=== PATIENT | male | born 1970 | race Two or more races ===

== ENCOUNTER 2022-05-08 03:17 | Emergency (ER) | payer SELFPAY ==
[~2022-05-08] VITALS: Ht 182.9 cm; Wt 104.3 kg
--- NOTE | 2022-05-08 03:36 | NUR ---
PRESENTED TO THE ER FOR C/O NON-RADIATING DOLL CP X 1 HOUR. NO SOB, FEVER, CHILLS, NAUSEA OR VOMITING. PT AMBULATORY TO ER BED 9, WAS PLACED ON A MONITOR. AWAITING FOR 'S EVER
--- NOTE | 2022-05-08 03:37 | NUR ---
RAC #18G S/L BLOOD COLLECTED AND SENT TO LAB
[2022-05-08] MEDS ORDERED: KETOROLAC TROMETHAMINE INJ 30 MG/ML VIAL ONE (03:45)
--- NOTE | 2022-05-08 03:49 | NUR ---
COVID ANTIGEN AND INFLUENZA SWAB COLLECTED AND SENT TO LAB
[2022-05-08] MEDS ORDERED: KETOROLAC TROMETHAMINE INJ 30 MG/ML VIAL IV ONE (04:00)
--- NOTE | 2022-05-08 04:15 | NUR ---
STEEL ROLLER AT PT'S BEDSIDE
[2022-05-08 04:44] LABS: BASOPHILS % (AUTO) 0.7 % (0.0-2.0); EOSINOPHILS % (AUTO) 1.8 % (0.0-6.0); HEMATOCRIT 46 % (39-51); HEMOGLOBIN 15.1 g/dL (13.5-17.5); LYMPHOCYTES % (AUTO) 36.2 % (20.0-44.0); MEAN CORPUSCULAR HGB CONC 33 g/dl (31.0-36.0); MEAN CORPUSCULAR VOLUME 91 fL (80-96); MONOCYTES # (AUTO) 0.6 K/uL (0.1-1.30); MONOCYTES % (AUTO) 10.4 % (2.0-12.0); NEUTROPHILS # (AUTO) 2.8 K/uL (1.8-8.9); NEUTROPHILS % (AUTO) 50.9 % (43.0-81.0); PLATELET COUNT (AUTO) 270 K/uL (150-450); RED BLOOD CELL COUNT(AUTO) 5.06 MIL/uL (4.5-6.0); WHITE BLOOD COUNT (AUTO) 5.5 K/uL (4.3-11.0)
[2022-05-08 04:55] LABS: CALCIUM, SERUM 8.1 mg/dL (8.5-10.1); CARBON DIOXIDE 25 mmol/L (21-32); CHLORIDE 103 mmol/L (98-107); CREATININE 0.9 mg/dL (0.6-1.3); GLUCOSE 125 mg/dL (74-106); POTASSIUM 3.5 mmol/L (3.5-5.1); SODIUM SERUM 134 mmol/L (136-145); UREA NITROGEN, BLOOD 12 mg/dL (7-18)
[2022-05-08] MEDS ORDERED: IBUP-1953 PO (05:37)
--- NOTE | 2022-05-08 05:47 | NUR ---
EMT AT PT'S BEDSIDE FOR EKG
--- NOTE | 2022-05-08 09:50 | NUR ---
IV removed. Catheter intact and site benign. Pressure and 4x4 applied to site. No bleeding noted.
[2022-05-08 09:58] VITALS: BP 139/92
--- NOTE | 2022-05-08 09:58 | NUR ---
Patient discharged to home in stable condition. Written and verbal after care instructions given. Patient verbalizes understanding of instruction.
== END 2022-05-08 09:59 | disposition home or self-care (01) ==
LOC: ER 03:23
DX: R07.9 Chest pain, unspecified (principal); J40 Bronchitis, not specified as acute or chronic; Z20.822 Contact with and (suspected) exposure to COVID-19; E66.01 Morbid (severe) obesity due to excess calories; Z68.31 Body mass index [BMI] 31.0-31.9, adult
CPT/HCPCS: 99285; 96374; 71045; 87426; 93005 ×2; 87804; 85025; 80048; 36415; 84484 ×2; J1885; C9803